=== PATIENT | female | born 1970 | race American Indian/Alaskan Native ===

== ENCOUNTER 2017-07-26 07:44 | Day surgery (SDC) | payer MEDICARE ==
[~2017-07-26 07:44] MED LIST: ANCEF/STERILE WATER 2 GM/20 ML 2 GM/20 ML SYRINGE IV NR; NACL 0.9% 1000 ML 1,000 ML IV SCH; VERSED IV NR
[2017-07-26] MEDS ORDERED: XYLOCAINE 1%/ EPI 1:100,000 INFILTRATI ONE (07:52)
[2017-07-26] MEDS ORDERED: HEPARIN 10,000 UNITS/10 ML ONE (07:52)
[2017-07-26] MEDS ORDERED: MARCAINE 0.5% 30 ML INFILTRATI ONE (07:52)
[2017-07-26] MEDS ORDERED: NACL 0.9% 500 ML 500 ML ONE (07:52)
[2017-07-26] MEDS ORDERED: NACL BACTERIOSTATIC INFILTRATI ONE (08:50)
[2017-07-26 09:21] LABS: Basophils # (Auto) 0.1 K/mm3 (0.0-0.1); Eosinophils # (Auto) 0.2 K/mm3 (0.0-0.4); Eosinophils % (Auto) 2.4 % (0.0-4.3); Hemoglobin 12.1 gm/dl (10.1-14.3); Lymphocytes # (Auto) 2.7 K/mm3 (1.2-5.4); Mean Corpuscular HGB Conc 33 % (30-34); Mean Corpuscular Hemoglobin 32 pg (28-32); Mean Corpuscular Volume 98 fl (79-97); Monocytes # (Auto) 0.6 K/mm3 (0.0-0.8); Monocytes % (Auto) 6.9 % (0.0-7.3); Platelet Count 295 K/mm3 (140-440); Red Blood Count 3.79 M/mm3 (3.65-5.03); Red Cell Distribution Width 14.7 % (13.2-15.2)
--- NOTE | 2017-07-26 09:24 | Anesthesia Day of Surgery ---
Anesthesia Day of Surgery - Day of Surgery Patient Examined: Yes Patient H&P Reviewed: Yes Patient is NPO: Yes
--- NOTE | 2017-07-26 09:25 | Anesthesia Consultation ---
Anesthesia Consult and Med Hx Date of service: 07/26/17 - Airway Anesthetic Teeth Evaluation: Good ROM Head & Neck: Adequate Mental/Hyoid Distance: Adequate Mallampati Class: Class I Intubation Access Assessment: Good - Pulmonary Exam CTA: Yes - Cardiac Exam Cardiac Exam: RRR - Pre-Operative Health Status ASA Pre-Surgery Classification: ASA3 Proposed Anesthetic Plan: General (GA with LMA ok. Pt denies GERD) - Cardiovascular System Hx Hypertension: Yes (Able to stop taking medsafter starting dialysis) - Central Nervous System Hx Psychiatric Problems: No - Endocrine Hx Renal Disease: Yes Hx End Stage Renal Disease: Yes - Hematic Hx Anemia: Yes (past hx) - Other Systems Hx Cancer: No
[2017-07-26 09:57] LABS: Calcium 9.8 mg/dL (8.4-10.2)
[2017-07-26] MEDS ORDERED: DILAUDID IV PRN (10:00)
[2017-07-26] MEDS ORDERED: ZOFRAN IV PRN (10:00)
[2017-07-26] MEDS ORDERED: NEO SYNEPHRINE/NS Syringe(OR USE) IV ONE (10:00)
[2017-07-26] MEDS ORDERED: DIPRIVAN 10 MG/ML IV ONE (10:49)
[2017-07-26] MEDS ORDERED: XYLOCAINE CARDIAC IV ONE (10:49)
[2017-07-26] MEDS ORDERED: ZOFRAN ONE (10:49)
[2017-07-26] MEDS ORDERED: SUBLIMAZE ONE (10:49)
[2017-07-26] MEDS ORDERED: DECADRON ONE ×2 (10:49→14:37)
[2017-07-26] MEDS ORDERED: VERSED ONE (11:58)
[2017-07-26] MEDS ORDERED: ePHEDrine SULFATE ONE (12:09)
[2017-07-26] MEDS ORDERED: HEPARIN 10,000 UNITS/10 ML 2,000 UNIT in NACL 0.9% 500 ML 500 ML IR ONE (12:12)
[2017-07-26] MEDS ORDERED: MARCAINE 0.5% INFILTRATI ONE ×2 (12:34)
[2017-07-26] MEDS ORDERED: NACL 0.9% IR ONE (12:34)
--- NOTE | 2017-07-26 13:54 | Post Operative Note ---
Pre-op diagnosis: thrombosed AV fistula, end-stage renal disease Post-op diagnosis: same Findings: Good thrill and bruit and AV graft right arm. Soft palpable radial pulse post completion Procedure: Creation of right arm brachial artery to axillary vein hemodialysis graft using PTFE Anesthesia: WILBER Surgeon: HERON LOU [facility] Supervisor: TERESA ARRIOLA Estimated blood loss: minimal Pathology: none Condition: stable Disposition: same day
--- NOTE | 2017-07-26 13:59 | Short Stay Summary ---
Short Stay Documentation Date of service: 07/26/17 Narrative H&P: Admitted to the operating suite for creation of a AV graft for hemodialysis access in her right arm - History H&P: obtained from office - Allergies and Medications Current Medications: Allergies hydrocodone Allergy (Verified 07/25/17 15:36) Rash, itch latex Allergy (Verified 07/25/17 15:36) Rash, itch Home Medications Medication Instructions Recorded Confirmed Last Taken Type Calcium Acetate 1 cap PO TID 07/25/17 07/26/17 07/25/17 History diphenhydrAMINE [Benadryl CAP] 25 mg PO Q8HR PRN 07/25/17 07/26/17 07/24/17 History Active Medications Hydromorphone HCl (Dilaudid) 0.5 mg IV Q10MIN PRN PRN Reason: Pain , Severe (7-10) Stop: 07/26/17 14:00 Cefazolin Sodium (Ancef/Sterile Water 2 Gm/20 Ml) 2 gm in 20 mls @ 80 mls/hr IV PREOP NR; Protocol Stop: 07/26/17 23:59 Sodium Chloride (Nacl 0.9% 1000 Ml) 1,000 mls @ 42 mls/hr IV DIRECT RENUKA Last Admin: 07/26/17 09:43 Dose: 42 mls/hr Midazolam HCl (Versed) 2 mg IV PREOP NR Stop: 07/26/17 23:59 Last Admin: 07/26/17 09:45 Dose: 2 mg Ondansetron HCl (Zofran) 4 mg IV ONCE PRN PRN Reason: Nausea And Vomiting Stop: 07/26/17 19:00 - Brief post op/procedure progress note Date of procedure: 07/26/17 Pre-op diagnosis: thrombosed AV fistula, end-stage renal disease Post-op diagnosis: same Procedure: Creation of right brachial artery to axillary vein hemodialysis graft using PTFE Anesthesia: GETA Findings: Slightly small brachial artery, nice size axillary vein. Good thrill and bruit in graft. Radial pulse softly palpable. 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
[2017-07-26] MEDS ORDERED: MORPHINE ONE (14:34)
[2017-07-26] MEDS ORDERED: MORPHINE IV PRN ×2 (14:35→15:02)
[2017-07-26] MEDS ORDERED: BENADRYL IV ONE ×2 (14:37→15:05)
[2017-07-26] MEDS ORDERED: DECADRON IV ONE ×2 (14:40→15:04)
--- NOTE | 2017-07-26 16:08 | Post Anesthesia Evaluation ---
- Post Anesthesia Evaluation Patient Participated: Yes Airway Patent: Yes Stable Respiratory Function: Yes Nausea/Vomiting: No Temp > 96.8F: Yes Pain Manageable: Yes Adequeate Hydration: Yes Anesthesia Complications: No Block Receding Appropriately: Not Applicable Patient on Ventilator: No
[2017-07-26 21:11] VITALS: BP 100/53
--- NOTE | 2017-07-27 16:31 | Operative Report ---
PREOPERATIVE DIAGNOSIS: End-stage renal disease. POSTOPERATIVE DIAGNOSIS: End-stage renal disease. OPERATIVE PROCEDURE: Creation of right arm brachial artery to axillary vein hemodialysis graft using PTFE. SURGEON: Dr. Adrian Bartlett. ANESTHESIA: General. ESTIMATED BLOOD LOSS: Negligible. PATIENT CONDITION: Stable. COMPLICATIONS: None. INSTRUMENT COUNTS: Correct. SPECIMENS: None. FINDINGS: Good quality brachial artery and axillary vein. Good thrill and bruit in the graft. DESCRIPTION OF PROCEDURE: The patient was in supine position with the right arm extended. The entire extremity was then prepped and draped using standard sterile technique. Attention was then turned to the antecubital fossa where a longitudinal incision was made and carried down through the subcutaneous tissue. The brachial artery was identified and mobilized for several centimeters and encircled using vessel loops. An incision was then made in the axilla in a longitudinal fashion and using a combination of blunt and sharp dissection, it was carried down through the subcutaneous tissue and the axillary vein was identified and mobilized for several centimeters and encircled using vessel loops. Attention was then returned to the brachial artery where a 4 mm end of a Propaten heparin bonded stepped graft was then brought into the surgical field and the 4 mm end was then slightly bevelled and then an end-to-side anastomosis was then created using 6-0 Prolene suture in a running technique. At the completion of the suture line, antegrade and retrograde flushing was performed and this suture line was completed. Flow was released retrograde in the graft and then back to the hand. The graft was occluded. The subcutaneous tunnel was then created using a curved Eleanor-Wick tunneling device and the graft was attached and withdrawn into the axillary incision. The length of the graft was adjusted and the distal limb was tapered to an appropriate length and configuration. The vein was occluded and a longitudinal venotomy was then made and then an end-to-side anastomosis was then created using 6-0 Prolene suture for needle technique. Prior to completion of the suture line, antegrade and retrograde flushing was performed. The suture line was then completed. Air was evacuated by retrograde filling. Flow was then released retrograde in the arm and then antegrade to the shoulder. The graft developed an excellent thrill and bruit. Hemostasis was good. All incisions were blocked with Marcaine 0.5% plain and then closed using 3-0 Vicryl subcutaneous, 4-0 Monocryl subcuticular. Skin was approximated with glue. The patient was then extubated and returned to recovery in stable condition having tolerated the procedure well. Sponge and needle counts were correct. JOB# [id number] ANGELIKA/NTS
== END 2017-07-26 17:20 | disposition home or self-care (01) ==
LOC: OR 07:44
PROVIDERS: ATTEND Surgery Vascular Surgery
DX: T82.868A Thrombosis due to vascular prosthetic devices, implants and grafts, initial encounter (principal); E11.22 Type 2 diabetes mellitus with diabetic chronic kidney disease; I12.0 Hypertensive chronic kidney disease with stage 5 chronic kidney disease or end stage renal disease; N18.6 End stage renal disease; D63.1 Anemia in chronic kidney disease; Z88.5 Allergy status to narcotic agent; Z91.040 Latex allergy status
CPT/HCPCS: 36415; 36832; 80048; 82962; 85025; C1768; J0690; J1100; J1200; J1644; J2001; J2250; J2270; J2370; J2405; J2704; J3010; J7030; J7040